=== PATIENT | male | born 1955 | race Caucasian/White ===

== ENCOUNTER 2016-05-26 14:24 | Emergency (ER) | payer BC, OTHER ==
[2016-05-26 14:37] VITALS: BP 138/84
--- NOTE | 2016-05-26 16:24 | US ---
Right lower extremity deep venous ultrasound: Duplex and color flow imaging was obtained of the right common femoral, superficial femoral, proximal greater saphenous, popliteal, posterior tibial and peroneal veins. Left common femoral vein was also evaluated. Findings: Normal phasic flow, augmentation and compression is seen. No ultrasound abnormality is seen within the posterior calf. Impression: 1. No evidence of deep venous thrombosis within the right lower extremity or within the left common femoral vein. Diagnostic code #1
--- NOTE | 2016-05-26 16:39 | EDM.PDOC ---
ED HPI Trauma - General Chief Complaint: Lower Extremity Injury/Pain Stated Complaint: RIGHT LOWER LEG PAIN- SENT BY CARTER Time Seen by Provider: 05/26/16 14:39 Source: Reports: Patient, RN notes reviewed - History of Present Illness INITIAL COMMENTS - FREE TEXT/NARRATIVE: 60-year-old male comes in with right leg pain. This first started about one week ago and has been worsening the past 3 days. The pain is involving the posterior right upper and mid calf. No injury that he is aware of. His been no obvious swelling redness or warmth. He has no personal history for DVT but family members have had DVT problems in the past. No chest pain or difficulty breathing Allergies/ADRs: Allergies No Known Allergies Allergy (Verified 05/26/16 14:37) Home Medications: Ambulatory Orders Lisinopril 25 mg PO DAILY 05/26/16 [Confirmed 05/26/16] Past Medical History Cardiovascular History: Reports: Hypertension Social & Family History - Tobacco Use Smoking Status *Q: Never Smoker - Caffeine Use Caffeine Use: Reports: Coffee - Recreational Drug Use Recreational Drug Use: No Review of Systems - Review of Systems Review Of Systems: See Below Constitutional: Denies: chills, fever Eyes: Reports: no symptoms Mouth/Throat: Reports: no symptoms Respiratory: Denies: Shortness of Breath, Pleuritic Chest Pain, Hemoptysis Cardiovascular: Denies: chest pain GI/Abdominal: Denies: Abdominal pain, Nausea, Vomiting Musculoskeletal: Reports: leg pain Skin: Reports: no symptoms Neurological: Denies: Numbness, Tingling Trauma Exam - Physical Exam Exam: See Below General Appearance: Reports: alert, no apparent distress Head: Reports: atraumatic Throat/Mouth: Reports: Normal inspection, Normal oropharynx Neck: Reports: full range of motion Respiratory Exam: Reports: no respiratory distress, lungs clear, normal breath sounds Cardiovascular: Reports: regular rate, rhythm Extremities: Reports: no evidence of injury, tenderness (Right posterior mid and upper calf), other (No warmth or erythema). Denies: pedal edema Neurologic: Reports: no motor/sensory deficits Skin: Reports: Normal color, Warm/dry Course - Vital Signs Last Recorded V/S: Last Vital Signs Temp 97.2 F 05/26/16 14:34 Pulse 86 05/26/16 14:34 Resp 16 05/26/16 14:34 BP 138/84 05/26/16 14:34 Pulse Ox 98 05/26/16 14:34 - Re-Assessments/Exams Free Text/Narrative Re-Assessment/Exam: 05/26/16 17:03 Ultrasound of right lower extremity negative for DVT Departure - Departure Time of Disposition: 16:37 Disposition: Home, Self-Care 01 Condition: fair Clinical Impression: Leg pain, right Referrals: Hipolito Garrido MD [Primary Care Provider] - Forms: ED Department Discharge Additional Instructions: Rest and elevate leg as much as possible, Advil or ibuprofen 2-3 times daily should help this resolve work with, followup clinic if not much better within 7- 10 days as expected, return to ED if symptoms worsening in any way
== END 2016-05-26 16:51 | disposition home or self-care (01) ==
LOC: JD.ED 14:24
DX: M79.604 Pain in right leg (principal); I10 Essential (primary) hypertension
CPT/HCPCS: 93971-26-RT; 93971-RT; 99282; 99284-25